=== PATIENT | male | born 1975 | race Caucasian/White ===

== ENCOUNTER 2017-09-19 08:33 | Emergency (ER) | payer SELFPAY ==
[2017-09-19 08:44] VITALS: BP 129/84
--- NOTE | 2017-09-19 09:04 | UC ---
Respiratory Complaint HPI - HPI Summary HPI Summary: 42 year old male with no significant pmhx here for congestion and right eye pain. Patient reports URI symptoms with runny nose and sinus pain. Woke up today with eye pain and crusty discharge from the eye with swelling. Denies any fever, chills, n/v/d. - History of Current Complaint Chief Complaint: UCEye Stated Complaint: EYE COMPLAINT (R) Time Seen by Provider: 09/19/17 08:51 Hx Obtained From: Patient Onset/Duration: Gradual Onset Timing: Constant Severity Initially: Mild Severity Currently: Mild Pain Intensity: 0 Character: Cough: Productive Aggravating Factors: Nothing Alleviating Factors: Nothing Associated Signs And Symptoms: Positive: URI, Nasal Congestion, Sinus Discomfort. Negative: Dyspnea, Fever, Pleuritic Chest Pain, Wheezing, Hemoptysis, Dizziness, Calf Pain, Calf Swelling - Allergies/Home Medications Allergies/Adverse Reactions: Allergies Allergy/AdvReac Type Severity Reaction Status Date / Time No Known Allergies Allergy Verified 09/19/17 08:44 PMH/Surg Hx/FS Hx/Imm Hx Previously Healthy: No Psychological History: Anxiety - Surgical History Surgical History: None - Social History Alcohol Use: None Substance Use Type: None Smoking Status (MU): Heavy Every Day Tobacco Smoker Review of Systems Constitutional: Negative Skin: Negative Eyes: Negative ENT: Sinus Congestion, Sinus Pain/Tenderness Respiratory: Cough Cardiovascular: Negative Gastrointestinal: Negative Genitourinary: Negative Motor: Negative Neurovascular: Negative Musculoskeletal: Negative Neurological: Negative Psychological: Negative All Other Systems Reviewed And Are Negative: Yes Physical Exam Triage Information Reviewed: Yes Appearance: Well-Appearing, No Pain Distress, Well-Nourished Vital Signs: Initial Vital Signs Temp 36.9 C 09/19/17 08:40 Pulse 90 09/19/17 08:40 Resp 18 09/19/17 08:40 BP 129/84 09/19/17 08:40 Pulse Ox 100 09/19/17 08:40 Eyes: Positive: Conjunctiva Clear, Discharge, Other: - eyelid redness and mild peirorbital swelling with no pain during EOM ENT: Positive: Nasal congestion, Sinus tenderness Respiratory Exam: Normal Cardiovascular Exam: Normal Abdominal Exam: Normal Neurological Exam: Normal UC Diagnostic Evaluation - Laboratory O2 Sat by Pulse Oximetry: 100 Respiratory Course/Dx - Differential Dx/Diagnosis Differential Diagnosis/HQI/PQRI: Influenza, Laryngitis, Sinusitis Provider Diagnoses: Preseptal cellulitis. Sinusitis Discharge - Sign-Out/Discharge Documenting (check all that apply): Discharge/Admit/Transfer - Discharge Plan Condition: Good Disposition: HOME Prescriptions: Amoxicillin/Clavulanate TAB* [Augmentin TAB 875*] 875 mg PO BID #20 tab Patient Education Materials: Sinusitis (ED), Periorbital Cellulitis in Adults ( ED) Forms: *Work Release Referrals: Non Staff,Doctor [Primary Care Provider] - - Billing Disposition and Condition Condition: GOOD Disposition: HOME
== END 2017-09-19 09:08 | disposition home or self-care (01) ==
LOC: UCCORT 08:33
DX: J32.9 Chronic sinusitis, unspecified (principal); L03.213 Periorbital cellulitis; F17.200 Nicotine dependence, unspecified, uncomplicated
CPT/HCPCS: 99212; G0463